=== PATIENT | female | born 1970 | race Caucasian/White ===

== ENCOUNTER 2019-09-28 17:34 | Emergency (ER) | payer BC, OTHER ==
--- OUTSIDE RECORDS SUMMARY | 2019-09-28 17:37 | XMS REPORT ---
:1970 Author Organization [facility] Address [address] [place] [address] [address] [place] [address] Care Team Providers Name Role Phone JHONNY MCCULLOUGH Primary Care Provider Unavailable JHONNY MCCULLOUGH Unavailable Unavailable Problems This patient has no known problems. Allergies, Adverse Reactions, Alerts This patient has no known allergies or adverse reactions. Medications This patient has no known medications. Results Test Description Test Time Test Comments Text Results Atomic Results Result Comments D-Dimer, Quantitative 2016-12-29 22:00:00 Test Item Value Reference Range Comments D-Dimer, Quant (test 488 ng/mL 0-500 Please note Change in unit of code=DDQNT) measure from mg/L FEU to ng/mLA cutoff of less than 500 ng/mL DD has a negative predictive value of100% for DVT clw433% for PE.When using D-Dimer to help rule out DVT or PE, clinical information anddisease probability should be considered.Elevated D-Dimer values are not specific for thromboembolism.
[2019-09-28] MEDS ORDERED: ONDANSETRON 4 MG/2 ML VIAL ONE (18:40)
[2019-09-28] MEDS ORDERED: NA CHLORIDE 0.9% 1,000 ML ONE (18:40)
[2019-09-28] MEDS ORDERED: MORPHINE 4 MG/ML SYR ONE (18:40)
[2019-09-28 18:50] LABS: Absolute Lymphocytes (CBC) 2.5 K/uL (0.7-4.9); Basophils % 0.2 % (0-1.3); Hematocrit 43.1 % (36.0-45.0); Lymphocytes % 21.2 % (15.3-44.8); RBC Red Blood Cell Count 5.19 M/uL (3.86-4.86)
[2019-09-28 19:13] LABS: Albumin 3.9 g/dL (3.4-5.0); Bilirubin Direct 0.2 mg/dL (0-0.2); Bilirubin Total 0.6 mg/dL (0.2-1.0); Potassium 3.1 mmol/L (3.5-5.1)
--- NOTE | 2019-09-28 19:38 | RAD REPORT ---
EXAM DESCRIPTION: CTAbdomen Pelvis W Contrast - 09/28/2019 7:30 pm CLINICAL HISTORY: Abdominal pain. abdominal pain, vomiting, diarrhea COMPARISON: No comparisons TECHNIQUE: Biphasic CT imaging of the abdomen and pelvis was performed with 100 ml non-ionic IV cont rast. All CT scans are performed using dose optimization technique as appropriate and may include automated exposure control or mA/KV adjustment according to patient size. FINDINGS: The lung bases are clear. The liver, spleen, pancreas, adrenal glands and kidneys are within normal limits. No bowel obstruction, free air, free fluid or abscess. A few mildly prominent and thickened small bow el loops in the left abdomen are seen. The appendix is normal. No evidence of significant lymphadeno eamon. No suspicious bony findings. IMPRESSION: A mild left-sided small bowel enteritis pattern is suspected.
[2019-09-28 19:45] LABS: Blood Morphology Comment NOT SEEN (NOT SEEN); Platelet Estimate ADEQ
--- NOTE | 2019-09-28 20:04 | EDPHYS ---
Physician Documentation [facility] Name: Jaz Weaver Age: 49 yrs Sex: Female : 1970 Arrival Date: 09/28/2019 Time: 17:36 Bed 28 Private MD: ED Physician Margret Yung HPI: 09/28 18:21 This 49 yrs old Female presents to ER via Ambulatory with complaints of jmm Abdominal Pain, Nausea/Vomiting. 18:21 The patient presents with abdominal pain. Onset: The symptoms/episode began/occurred jmm gradually, 1 week(s) ago. The symptoms do not radiate. Associated signs and symptoms: Pertinent positives: nausea and vomiting, diarrhea. The symptoms are described as achy. Modifying factors: The symptoms are alleviated by no eating. the symptoms are aggravated by food. The patient has not experienced similar symptoms in the past. This is a 49 year old female with no chronic medical conditions that presents to the ED with complaints of abdominal pain which began with diarrhea 1 week ago. patient states she developed vomiting after eating today. Pain is in the epigastric region. Denies fever. Denies surgical history. . 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 - Coronavirus screen:: The patient has NOT traveled to [place], [place], or [place] in the past 14 days. - Social history:: Smoking status: Patient/guardian denies using tobacco. - Ebola Screening: : Patient denies travel to an Ebola-affected area in the 21 days before illness onset. ROS: 18:21 Constitutional: Negative for fever, chills, and weight loss, Cardiovascular: Negative jmm for chest pain, palpitations, and edema, Respiratory: Negative for shortness of breath, cough, wheezing, and pleuritic chest pain. 18:21 Abdomen/GI: Positive for abdominal pain, nausea and vomiting, diarrhea. 18:21 All other systems are negative. Exam: 18:21 Constitutional: This is a well developed, well nourished patient who is awake, alert, jmm and in no acute distress. Head/Face: atraumatic. Eyes: EOMI, no conjunctival erythema appreciated ENT: Moist Mucus Membranes Neck: Trachea midline, Supple Chest/axilla: Normal chest wall appearance and motion. Cardiovascular: Regular rate and rhythm. No edema appreciated Respiratory: Normal respirations, no respiratory distress appreciated 18:21 Back: Normal ROM Skin: General appearance color normal MS/ Extremity: Moves all extremities, no obvious deformities appreciated, no edema noted to the lower extremities Neuro: Awake and alert, normal gait Psych: Behavior is normal, Mood is normal, Patient is cooperative and pleasant 18:21 Abdomen/GI: Inspection: abdomen appears normal, Bowel sounds: normal, Palpation: soft, mild abdominal tenderness, in the epigastric area. Vital Signs: 17:54 BP 148 / 101; Pulse 96; Resp 20; Temp 98.2; Pulse Ox 98% on R/A; Weight 129.73 kg (R); aj1 Height 5 ft. 11 in. (180.34 cm) (R); Pain 8/10; 20:08 BP 112 / 70; Pulse 79; Resp 16; Pulse Ox 95% ; Pain 0/10; vc 17:54 Body Mass Index 39.89 (129.73 kg, 180.34 cm) aj1 MDM: 18:11 Patient medically screened. [facility] 20:01 Data reviewed: vital signs, nurses notes. Counseling: I had a detailed discussion with kate the patient and/or guardian regarding: the historical points, exam findings, and any diagnostic results supporting the discharge/admit diagnosis, lab results, radiology results, the need for outpatient follow up, to return to the emergency department if symptoms worsen or persist or if there are any questions or concerns that arise at home. ED course: Patient states she if feeling much better. Imaging studies reveal enteritis pattern. Patient is advised to follow up with PCP and otherwise given strict return precaution. Patient understood and agrees with the plan of care. . 09/28 18:14 Order name: Basic Metabolic Panel; Complete Time: 19:24 [facility] 09/28 18:14 Order name: CBC with Diff; Complete Time: 19:48 [facility] 09/28 18:14 Order name: Creatinine for Radiology; Complete Time: 19:24 [facility] 09/28 18:14 Order name: Hepatic Function; Complete Time: 19:24 [facility] 09/28 18:14 Order name: Lipase; Complete Time: 19:24 [facility] 09/28 19:14 Order name: Urine Dipstick--Ancillary (enter results); Complete Time: 20:07 09/28 18:14 Order name: IV Saline Lock; Complete Time: 19:02 [facility] 09/28 18:14 Order name: Labs collected and sent; Complete Time: 19:02 [facility] 09/28 18:14 Order name: CT Abd/Pelvis - IV Contrast Only; Complete Time: 19:51 [facility] 09/28 19:14 Order name: Urine --Ancillary (enter results); Complete Time: 20:07 09/28 19:46 Order name: Manual Differential; Complete Time: 19:48 [facility] 09/28 18:14 Order name: Urine Dipstick-Ancillary (obtain specimen); Complete Time: 18:49 [facility] 09/28 18:14 Order name: Urine Test (obtain specimen); Complete Time: 18:48 [facility] Administered Medications: 18:20 Drug: morphine 4 mg Route: IVP; Site: right antecubital; vc 20:02 Follow up: Response: No adverse reaction vc 18:20 Drug: Zofran 4 mg Route: IVP; Site: right antecubital; vc 20:02 Follow up: Response: No adverse reaction vc 18:20 Drug: NS 0.9% 1000 ml Route: IV; Rate: 1 bolus; Site: right antecubital; vc 19:20 Follow up: IV Status: Completed infusion vc Disposition: 09/28/19 20:03 Discharged to Home. Impression: Vomiting, Diarrhea, unspecified, Upper abdominal pain, unspecified. - Condition is Stable. - Discharge Instructions: Food Choices to Help Relieve Diarrhea, Adult, Diarrhea, Adult, Nausea and Vomiting, Adult. - Prescriptions for Zofran ODT 4 mg Oral tablet,disintegrating - place 1 tablet by TRANSLINGUAL route every 4-6 hours; 20 tablet. Bentyl 20 mg Oral Tablet - take 2 tablet by ORAL route every 6 hours As needed; 40 tablet. - Medication Reconciliation Form, Thank You Letter, Antibiotic Education, Prescription Opioid Use form. - Follow up: Private Physician; When: 2 - 3 days; Reason: Recheck today's complaints, Continuance of care, Re-evaluation by your physician. Addendum: 10/01/2019 18:52 Co-signature as Attending Physician, Margret Yung MD. m a2 Signatures: Dispatcher [employer] EDSue Garrido RN RN aj1 Darvin Bailey PA PA jmm Alzahri, Mohammad, MD MD ma2 Monica Kumar RN RN vc Corrections: (The following items were deleted from the chart) 09/28 20:49 20:03 09/28/2019 20:03 Discharged to Home. Impression: Vomiting; Diarrhea, unspecified; vc Upper abdominal pain, unspecified. Condition is Stable. Forms are Medication Reconciliation Form, Thank You Letter, Antibiotic Education, Prescription Opioid Use. Follow up: Private Physician; When: 2 - 3 days; Reason: Recheck today's complaints, Continuance of care, Re-evaluation by your physician. kate
--- NOTE | 2019-09-28 20:04 | ER ---
[facility] Name: Jaz Weaver Age: 49 yrs Sex: Female : 1970 Arrival Date: 09/28/2019 Time: 17:36 Bed 28 Private MD: Diagnosis: Vomiting;Diarrhea, unspecified;Upper abdominal pain, unspecified Presentation: 09/28 17:51 Presenting complaint: Patient states: Abdominal pain for the past week, states that she aj1 saw here [facility] on Tuesday and he ordered blood work and he called today and said the blood work was normal. Patient states that the pain is intermittent, she is also having some diarrhea and vomiting. Patient reports epigastric pain. Transition of care: patient was not received from another setting of care. Onset of symptoms was September 28, 2019. Risk Assessment: Do you want to hurt yourself or someone else? Patient reports no desire to harm self or others. Initial Sepsis Screen: Does the patient meet any 2 criteria? No. Patient's initial sepsis screen is negative. Does the patient have a suspected source of infection? Yes: Acute abdominal pain. Care prior to arrival: None. 17:51 Method Of Arrival: Ambulatory [facility] 17:51 Acuity: NUHA 3 aj1 Triage Assessment: 17:54 General: Appears in no apparent distress. comfortable, Behavior is calm, cooperative, aj1 appropriate for age. Pain: Complains of pain in epigastric area. Neuro: Level of Consciousness is awake, alert, obeys commands. Cardiovascular: Patient's skin is warm and dry. Respiratory: Airway is patent Respiratory effort is even, unlabored, Respiratory pattern is regular, symmetrical. GI: Reports upper abdominal pain, diarrhea, nausea, vomiting. 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 - Coronavirus screen:: The patient has NOT traveled to [place], [place], or [place] in the past 14 days. - Social history:: Smoking status: Patient/guardian denies using tobacco. - Ebola Screening: : Patient denies travel to an Ebola-affected area in the 21 days before illness onset. Screenin:15 Abuse screen: Denies threats or abuse. Nutritional screening: No deficits noted. vc Tuberculosis screening: No symptoms or risk factors identified. Fall Risk None identified. Assessment: 18:30 General: Appears in no apparent distress. uncomfortable, Behavior is calm, cooperative, vc appropriate for age. Pain: Complains of pain in abdomen and epigastric area. Neuro: Level of Consciousness is awake, alert, obeys commands, Oriented to person, place, time, situation, Business Risk Analyst are. Cardiovascular: Capillary refill < 3 seconds Patient's skin is warm and dry. Respiratory: Airway is patent Respiratory effort is even, unlabored. GI: Bowel sounds present X 4 quads. Abd is soft Abdomen is tender to palpation. : No signs and/or symptoms were reported regarding the genitourinary system. EENT: No signs and/or symptoms were reported regarding the EENT system. Derm: Skin temperature is warm. Musculoskeletal: Circulation, motion, and sensation intact. Capillary refill < 3 seconds, Range of motion: intact in all extremities. 19:30 Reassessment: Patient and/or family updated on plan of care and expected duration. Pain vc level reassessed. Patient is alert, oriented x 3, equal unlabored respirations, skin warm/dry/pink. Patient states feeling better. 20:08 Reassessment: Patient and/or family updated on plan of care and expected duration. Pain vc level reassessed. Patient is alert, oriented x 3, equal unlabored respirations, skin warm/dry/pink. Patient states feeling better. Patient states symptoms have improved. Neuro: Level of Consciousness is awake, alert, obeys commands, Oriented to person, place, time, situation. 20:14 Reassessment: Discharge pending due to fluids infusing. vc Vital Signs: 17:54 BP 148 / 101; Pulse 96; Resp 20; Temp 98.2; Pulse Ox 98% on R/A; Weight 129.73 kg (R); aj1 Height 5 ft. 11 in. (180.34 cm) (R); Pain 8/10; 20:08 BP 112 / 70; Pulse 79; Resp 16; Pulse Ox 95% ; Pain 0/10; vc 17:54 Body Mass Index 39.89 (129.73 kg, 180.34 cm) aj1 ED Course: 17:36 Patient arrived in ED. as 17:53 Triage completed. aj1 17:54 Arm band placed on Patient placed in an exam room. aj1 18:01 Darvin Bailey PA is PHCP. [facility] 18:02 Margret Yung MD is Attending Physician. [facility] 18:12 Monica Kumar, KARINA is Primary Nurse. vc 18:15 Patient has correct armband on for positive identification. Placed in gown. Bed in low vc position. Call light in reach. Side rails up X 1. 18:53 Radiology exam delayed due to lab results not completed at this time. (BUN/Creatinine). ag6 19:31 CT Abd/Pelvis - IV Contrast Only In Process Unspecified. EDMS 20:08 No provider procedures requiring assistance completed. vc 20:49 IV discontinued, intact, bleeding controlled, No redness/swelling at site. Pressure vc dressing applied. Administered Medications: 18:20 Drug: morphine 4 mg Route: IVP; Site: right antecubital; vc 20:02 Follow up: Response: No adverse reaction vc 18:20 Drug: Zofran 4 mg Route: IVP; Site: right antecubital; vc 20:02 Follow up: Response: No adverse reaction vc 18:20 Drug: NS 0.9% 1000 ml Route: IV; Rate: 1 bolus; Site: right antecubital; vc 19:20 Follow up: IV Status: Completed infusion vc Outcome: 20:03 Discharge ordered by MD. [facility] 20:49 Discharged to home ambulatory. vc 20:49 Condition: improved 20:49 Discharge instructions given to patient, Instructed on discharge instructions, follow up and referral plans. medication usage, Demonstrated understanding of instructions, follow-up care, medications, Prescriptions given X 2. 20:49 Patient left the ED. vc Signatures: Dispatcher [employer] EDMS uSe Johnson RN RN aj Darvin Bailey PA PA jmm Martinez, Amelia as Calcote, Vanessa, RN RN Madison Bailon ag6
[2019-09-28 20:05] LABS: Urine Blood 1+ (NEG); Urine Glucose NEGATIVE (NEG); Urine Protein NEGATIVE (NEG); Urine Specific Gravity 1.015 (1.005-1.030); Urine pH 6.5 (5.0-7.0)
[2019-09-28 21:11] VITALS: TEMP 98.2
[2019-09-28 21:12] VITALS: BP 112/70; O2SAT 95
== END 2019-09-28 20:49 | disposition home or self-care (01) ==
LOC: ER 17:34
DX: R19.7 Diarrhea, unspecified (principal); R11.10 Vomiting, unspecified
CPT/HCPCS: 36415; 74177; 80048; 80076; 81003; 81025; 83690; 85025; 96361; 96374; 96375; 99283; J2405; J7030; Q9967